=== PATIENT | female | born 1975 ===

== ENCOUNTER 2018-08-14 16:43 | Emergency (ER) | payer BC, OTHER ==
[2018-08-14 16:47] VITALS: PULSE 94; RESP 18; TEMP 98.1; O2SAT 100
--- NOTE | 2018-08-14 17:03 | ED PDOC ---
Arrival/HPI - General Chief Complaint: Finger,Hand,&Wrist Time Seen by Provider: 08/14/18 16:59 Historian: Patient - History of Present Illness Narrative History of Present Illness (Text): 08/14/18 17:03 43yo female c/o pain redness and swelling to nail fold extending up finger L 5th digit since yesterday. No fever. No prior hx skin infections. Past Medical History - Provider Review Nursing Documentation Reviewed: Yes - Travel History Have you recently traveled outside [place] w/in the past 3 mons?: No - Past History Past History: Non-Contributing - Reproductive Currently : Unknown - Psychiatric Hx Substance Use: No Family/Social History Family/Social History: Unknown Family HX Smoking Status: Never Smoked Hx Alcohol Use: No Hx Substance Use: No Allergies/Home Meds Allergies/Adverse Reactions: Allergies No Known Allergies Allergy (Verified 08/14/18 16:45) Physical Exam Vital Signs Reviewed: Yes Vital Signs Temp Pulse Resp Pulse Ox 08/14/18 16:45 98.1 F 94 H 18 100 Mental Status: Positive for: Alert and Oriented X 3 - Systems Exam Upper Extremity: Present: Other (L 5th digit medial mild paronyhcia with extending erythema to prox finger, no tenderness pulp finger) Psychiatric: Present: Normal Concentration Medical Decision Making ED Course and Treatment: sterile 15blade used to make small incision at cuticle edge with release of small amount of pus irrigated bacitracin applied rec keflex for few days given erythema warm soaks followup hand specialist prn - Medication Orders Current Medication Orders: Cephalexin Monohydrate (Keflex) 500 mg PO STAT STA; Protocol Stop: 08/14/18 17:02 Disposition/Present on Arrival - Present on Arrival Any Indicators Present on Arrival: No - Disposition Have Diagnosis and Disposition been Completed?: Yes Diagnosis: Paronychia, Cellulitis, finger Disposition: HOME/ ROUTINE Disposition Time: 17:30 Patient Plan: Discharge Condition: STABLE Discharge Instructions (ExitCare): Paronychia (DC) Additional Instructions: Warm soaks of affected finger 5x daily. Start antibiotic as directed. Use bacitracin to nail 2x daily. Prescriptions: Cephalexin [cephalexin] 500 mg PO TID #21 cap Referrals: Serafin Zuluaga MD [Medical Doctor] - Forms: [employer] (M[place]itian)
== END 2018-08-14 17:48 | disposition home or self-care (01) ==
LOC: H.ER 16:43
DX: L03.012 Cellulitis of left finger (principal)